=== PATIENT | female | born 1985 | race Caucasian/White ===

== ENCOUNTER 2022-07-28 17:25 | Inpatient (IN) | payer OTHER ==
[2022-07-28] MEDS ORDERED: AMPICILLIN - 2 GM in SODIUM CHLORIDE 100 ML IVPB ONE ×2 (17:40→18:08)
[2022-07-28] MEDS ORDERED: BUTORPHANOL TARTRATE 1 MG/ML VIAL IVPB ONE (18:18)
[2022-07-28] MEDS ORDERED: PROMETHAZINE HCL 25 MG/1 ML VIAL IVPUSH ONE (18:18)
[2022-07-28] MEDS ORDERED: DEXTROSE 5%-LACTATED RINGERS 1,000 ML IV SCH (18:30)
[2022-07-28 18:32] VITALS: BMI 31.4
[2022-07-28] MEDS ORDERED: LACTATED RINGERS SOLUTION 1000 ML INFUS.BAG IV STA (18:43)
[2022-07-28 18:49] LABS: BASO % 0.5 % (0-2.0); EOS % 1.1 % (0-4.5); HEMATOCRIT 34.4 % (32.4-45.2); HEMOGLOBIN 11.3 GM/dL (10.7-15.3); LYMPH % 19.2 % (8-40); MCH 26.2 pg (25.7-33.7); MCHC 32.8 g/dl (32.0-36.0); MEAN CELL VOLUME 79.9 fl (80-96); MEAN PLT VOLUME 9.9 fl (7.5-11.1); MONO % 6.1 % (3.8-10.2); NEUT % 73.1 % (42.8-82.8); PLATELET COUNT 180 10^3/uL (134-434); RBC 4.31 M/mm3 (3.60-5.2); RDW 17.8 % (11.6-15.6); WHITE BLOOD COUNT 8.1 K/mm3 (4.0-10.0)
[2022-07-28 18:53] LABS: INR 0.91 (0.83-1.09); PROTHROMBIN TIME (PATIENT) 10.4 SEC (9.7-13.0)
[2022-07-28 19:11] LABS: CALCIUM 8.8 mg/dL (8.5-10.1)
[2022-07-28 19:12] LABS: BLOOD UREA NITROGEN 12.8 mg/dL (7-18)
[2022-07-28 19:15] LABS: CREATININE 0.7 mg/dL (0.55-1.3)
[2022-07-28] MEDS ORDERED: BUTORPHANOL TARTRATE 1 MG/ML VIAL ONE (20:00)
[2022-07-28] MEDS ORDERED: PROMETHAZINE HCL 25 MG/1 ML VIAL ONE (20:00)
[2022-07-28] MEDS ORDERED: AMPICILLIN SODIUM 1 GM VIAL ONE (21:39)
[2022-07-28] MEDS: AMPICILLIN - 1 GM in SODIUM CHLORIDE 100 ML IVPB SCH (21:40)
[2022-07-28] MEDS ORDERED: OXYTOCIN 20 UNITS in 0.9% NS 20 UNIT/1,000 ML INFUS.BAG IV ONE (21:44)
[2022-07-28] MEDS ORDERED: FENTANYL/BUPIVACAINE/NS/PF - PCEA - 50 ML DISP.SYRIN EP ONE (22:44)
[2022-07-28] MEDS ORDERED: NALOXONE HCL 0.4 MG/ML VIAL IVPUSH PRN (23:42)
[2022-07-28] MEDS ORDERED: FENTANYL/BUPIVACAINE/NS/PF - PCEA - 50 ML DISP.SYRIN EP SCH (23:45)
[2022-07-29] MEDS ORDERED: AMPICILLIN SODIUM 1 GM VIAL ONE (01:53)
[2022-07-29] MEDS: AMPICILLIN - 1 GM in SODIUM CHLORIDE 100 ML IVPB SCH (01:55)
[2022-07-29] MEDS ORDERED: BENZOCAINE 20% 57 GM BOTTLE TP PRN (05:13)
[2022-07-29] MEDS ORDERED: oxyCODONE HCL 5 MG TABLET PO PRN (05:13)
[2022-07-29] MEDS ORDERED: WITCH HAZEL 50% (TUCKS) 40 PAD/JAR PAD TP PRN (05:13)
[2022-07-29] MEDS ORDERED: ACETAMINOPHEN 325 MG TABLET (FP) PO PRN (05:13)
[2022-07-29] MEDS ORDERED: IBUPROFEN 600 MG TABLET (FP) PO PRN (05:13)
[2022-07-29] MEDS ORDERED: BISACODYL 10 MG SUPP.RECT RC PRN (05:13)
[2022-07-29] MEDS ORDERED: METHYLERGONOVINE MALEATE 0.2 MG/1 ML AMP IM PRN (05:13)
[2022-07-29] MEDS ORDERED: BENZOCAINE 28 GM HEMORRHOIDAL OINTMENT TP PRN (05:13)
[2022-07-29] MEDS ORDERED: OXYTOCIN 20 UNITS in 0.9% NS 20 UNIT/1,000 ML INFUS.BAG IV SCH (05:15)
[2022-07-29 06:32] LABS: CORD BASE EXCESS -6.4 mmol/L (0-2); CORD HCO3 21.1 mmHg (20-29); CORD PCO2 48.1 mmHg (30-78); CORD pH 7.259 (7.14-7.44)
[2022-07-29] MEDS: FERROUS SO4 325 MG TABLET (FP) PO SCH ×2 (09:42→17:17)
[2022-07-29] MEDS: PRENATAL VITAMINS W/ FOLIC ACID TABLET (FP) PO SCH (09:42)
[2022-07-29] MEDS ORDERED: PHENYLEPH/MINERAL OIL/PETROLAT 28 GM OINTMENT RC PRN (22:40)
[2022-07-30] MEDS: FERROUS SO4 325 MG TABLET (FP) PO SCH ×2 (08:31→17:41)
[2022-07-30 10:05] LABS: BASO % 0.4 % (0-2.0); EOS % 2.2 % (0-4.5); HEMATOCRIT 29.1 % (32.4-45.2); HEMOGLOBIN 9.2 GM/dL (10.7-15.3); LYMPH % 20.2 % (8-40); MCH 25.4 pg (25.7-33.7); MCHC 31.7 g/dl (32.0-36.0); MEAN CELL VOLUME 80.2 fl (80-96); MEAN PLT VOLUME 10.3 fl (7.5-11.1); MONO % 4.8 % (3.8-10.2); NEUT % 72.4 % (42.8-82.8); PLATELET COUNT 148 10^3/uL (134-434); RBC 3.62 M/mm3 (3.60-5.2); RDW 17.9 % (11.6-15.6); WHITE BLOOD COUNT 8.6 K/mm3 (4.0-10.0)
[2022-07-30] MEDS: PRENATAL VITAMINS W/ FOLIC ACID TABLET (FP) PO SCH (10:17)
[2022-07-30] MEDS ORDERED: SENNOSIDES/DOCUSATE COMBO (SENNA PLUS) TABLET (UD) PO PRN (22:00)
[2022-07-31] MEDS: FERROUS SO4 325 MG TABLET (FP) PO SCH (08:23)
[2022-07-31] MEDS: PRENATAL VITAMINS W/ FOLIC ACID TABLET (FP) PO SCH (09:51)
[2022-07-31 10:41] VITALS: BP 116/61; PULSE 65; RESP 16; TEMP 98.2
== END 2022-07-31 14:50 | disposition home or self-care (01) | DRG 560 ==
LOC: JLDR 17:25 → J3W 07-29 05:49
PROVIDERS: ADMIT Obstetrics & Gynecology; ATTEND Obstetrics & Gynecology
PROC: 10E0XZZ Delivery of Products of Conception, External Approach (ICD-10-PCS; principal; 2022-07-28)
PROC: 0HQ9XZZ Repair Perineum Skin, External Approach (ICD-10-PCS; 2022-07-28)
DX: O24.420 Gestational diabetes mellitus in childbirth, diet controlled (principal); O69.81X0 Labor and delivery complicated by cord around neck, without compression, not applicable or unspecified; O70.0 First degree perineal laceration during delivery; O99.824 Streptococcus B carrier state complicating childbirth; Z3A.38 38 weeks gestation of pregnancy; Z37.0 Single live birth
CPT/HCPCS: 36415; 36600; 59409; 80048; 82803; 82962; 85025; 85610; 85730; 86780; 86850; 86900; 86901; C9803-CS; U0003; U0005

== ENCOUNTER 2023-09-09 14:23 | Inpatient (IN) | payer OTHER ==
[2023-09-09] MEDS ORDERED: ELECTROLYTE-148 SOLN 1,000 ML IV SCH (14:45)
[2023-09-09] MEDS ORDERED: DINOPROSTONE 10 MG VAGINAL SUPPOSITORY VG ONE (15:10)
[2023-09-09 15:33] LABS: BASO % 1.1 % (0-2.0); HEMATOCRIT 26.3 % (32.4-45.2); HEMOGLOBIN 8.2 GM/dL (10.7-15.3); LYMPH % 25.9 % (8-40); MCH 21.4 pg (25.7-33.7); MCHC 31.3 g/dl (32.0-36.0); MEAN CELL VOLUME 68.4 fl (80-96); MEAN PLT VOLUME 9.9 fl (7.5-11.1); MONO % 6.1 % (3.8-10.2); NEUT % 63.9 % (42.8-82.8); PLATELET COUNT 179 10^3/uL (134-434); RBC 3.85 M/mm3 (3.60-5.2); RDW 20.7 % (11.6-15.6)
[2023-09-09 15:40] LABS: INR 0.97 (0.83-1.09); PROTHROMBIN TIME (PATIENT) 11.2 SEC (9.7-13.0)
[2023-09-09 15:42] LABS: ACTIVATED PTT 27.4 SECONDS (25.2-36.5)
[2023-09-09] MEDS ORDERED: BUTORPHANOL TARTRATE 1 MG/ML VIAL IVPUSH PRN (15:45)
[2023-09-09 15:51] LABS: CALCIUM 7.9 mg/dL (8.5-10.1)
[2023-09-09 15:52] LABS: BLOOD UREA NITROGEN 7.6 mg/dL (7-18)
[2023-09-09 15:54] LABS: ANISOCYTOSIS 2+; MACROCYTOSIS 1+
[2023-09-09 15:56] LABS: CREATININE 0.6 mg/dL (0.55-1.3)
[2023-09-09 15:58] VITALS: BMI 31.8
[2023-09-09] MEDS ORDERED: PROMETHAZINE HCL 25 MG/1 ML VIAL IVPB ONE (16:45)
[2023-09-09] MEDS ORDERED: FENTANYL/BUPIVACAINE/NS/PF - PCEA - 50 ML DISP.SYRIN EP ONE (19:44)
[2023-09-09] MEDS ORDERED: LIDOCAINE HCL/EPINEPHRINE/PF 10 ML VIAL ONE (19:51)
[2023-09-09] MEDS ORDERED: BUPIVACAINE HCL/PF 0.25% (2.5MG/ML) 10 ML VIAL ONE (19:51)
[2023-09-09] MEDS ORDERED: NALOXONE HCL 0.4 MG/ML VIAL IVPUSH PRN (20:14)
[2023-09-09] MEDS ORDERED: FENTANYL/BUPIVACAINE/NS/PF - PCEA - 50 ML DISP.SYRIN EP SCH (20:15)
[2023-09-09] MEDS ORDERED: OXYTOCIN 20 UNITS in 0.9% NS 20 UNIT/1,000 ML INFUS.BAG IV ONE (20:40)
[2023-09-09] MEDS ORDERED: LIDOCAINE HCL 1% PRESERVATIVE FREE - 30ML VIAL ONE (20:40)
[2023-09-09] MEDS ORDERED: METHYLERGONOVINE MALEATE 0.2 MG/1 ML AMP IM ONE ×2 (20:55→22:28)
[2023-09-09 21:24] LABS: CORD BASE EXCESS -8.5 mmol/L (0-2); CORD HCO3 23.3 mmHg (20-29); CORD PCO2 75.4 mmHg (30-78); CORD pH 7.108 (7.14-7.44)
[2023-09-09 21:27] LABS: CORD BASE EXCESS -5.9 mmol/L (0-2); CORD HCO3 21.5 mmHg (20-29); CORD PCO2 48.6 mmHg (30-78); CORD pH 7.264 (7.14-7.44)
[2023-09-09] MEDS ORDERED: OXYTOCIN 20 UNITS in 0.9% NS 20 UNIT/1,000 ML INFUS.BAG IV SCH ×2 (22:10→22:30)
[2023-09-09] MEDS ORDERED: BENZOCAINE 28 GM HEMORRHOIDAL OINTMENT TP PRN (22:27)
[2023-09-09] MEDS ORDERED: BENZOCAINE 20% 57 GM BOTTLE TP PRN (22:27)
[2023-09-09] MEDS ORDERED: METHYLERGONOVINE MALEATE 0.2 MG/1 ML AMP IM PRN (22:27)
[2023-09-09] MEDS ORDERED: ACETAMINOPHEN 325 MG TABLET (FP) PO PRN (22:27)
[2023-09-09] MEDS ORDERED: oxyCODONE HCL 5 MG TABLET PO PRN (22:27)
[2023-09-09] MEDS ORDERED: WITCH HAZEL 50% (TUCKS) 40 PAD/JAR PAD TP PRN (22:27)
[2023-09-09] MEDS ORDERED: IBUPROFEN 600 MG TABLET (FP) PO PRN (22:27)
[2023-09-09] MEDS ORDERED: BISACODYL 10 MG SUPP.RECT RC PRN (22:27)
[2023-09-10] MEDS ORDERED: METHYLERGONOVINE MALEATE 0.2 MG/1 ML AMP IM PRN (01:00)
[2023-09-10 09:24] LABS: BASO % 0.2 % (0-2.0); EOS % 0.9 % (0-4.5); HEMATOCRIT 24.1 % (32.4-45.2); HEMOGLOBIN 7.4 GM/dL (10.7-15.3); LYMPH % 16.7 % (8-40); MCH 21.4 pg (25.7-33.7); MCHC 30.8 g/dl (32.0-36.0); MEAN CELL VOLUME 69.3 fl (80-96); MEAN PLT VOLUME 10.5 fl (7.5-11.1); NEUT % 75.2 % (42.8-82.8); PLATELET COUNT 144 10^3/uL (134-434); RBC 3.48 M/mm3 (3.60-5.2); RDW 20.2 % (11.6-15.6); WHITE BLOOD COUNT 8.6 K/mm3 (4.0-10.0)
[2023-09-10 18:18] VITALS: RESP 18
[2023-09-10] MEDS ORDERED: SENNOSIDES/DOCUSATE COMBO (SENNA PLUS) TABLET (UD) PO PRN (22:00)
[2023-09-11 02:13] VITALS: BP 97/60
[2023-09-11 09:03] VITALS: PULSE 68; TEMP 98.4
== END 2023-09-11 11:30 | disposition home or self-care (01) | DRG 560 ==
LOC: JLDR 14:23 → J3W 22:47
PROVIDERS: ADMIT Obstetrics & Gynecology; ATTEND Obstetrics & Gynecology
PROC: 10E0XZZ Delivery of Products of Conception, External Approach (ICD-10-PCS; principal; 2023-09-09)
PROC: 3E0P7VZ Introduction of Hormone into Female Reproductive, Via Natural or Artificial Opening (ICD-10-PCS; 2023-09-09)
DX: O24.420 Gestational diabetes mellitus in childbirth, diet controlled (principal); Z3A.39 39 weeks gestation of pregnancy; Z37.0 Single live birth
CPT/HCPCS: 36415; 36600; 80048; 82803; 82962; 85025; 85610; 85730; 86780; 86850; 86900; 86901; 86922